=== PATIENT | female | born 1950 | race Caucasian/White ===

== ENCOUNTER 2016-05-19 23:33 | Observation (INO) | payer MEDICARE, OTHER ==
[~2016-05-19] VITALS: Ht 149.9 cm; Wt 48.2 kg
[2016-05-19 23:15] VITALS: BP 164/71; PULSE 81; RESP 30; O2SAT 96
[2016-05-19 23:35] VITALS: BP 112/68; PULSE 81; RESP 24; O2SAT 94
[2016-05-19] MEDS ORDERED: Ondansetron 2 mg/mL 2 mL Inj IVPUSH PRN (23:50)
[2016-05-19] MEDS ORDERED: Atropine 1 mg/10 mL (Code) Syringe IVPUSH PRN (23:50)
[2016-05-19] MEDS ORDERED: Senna-Docusate 8.6-50 mg Tablet PO PRN (23:50)
[2016-05-19] MEDS ORDERED: Alum-Mag Hydrox-Simeth 30 mL Suspension PO PRN (23:50)
[2016-05-19] MEDS ORDERED: Polyethylene Glycol (PEG) 17 Gm Powder PO PRN (23:50)
[2016-05-19] MEDS ORDERED: Heparin 25K Unit/500mL 0.45 NS 25,000 UNIT in IV Premix 1 EACH IV SCH (23:55)
[2016-05-19] MEDS ORDERED: Heparin 5,000 Unit/mL Inj IVPUSH PRN (23:55)
[2016-05-20] VITALS (8 sets, daily range): BP systolic 107–130; BP diastolic 62–73; PULSE 71–90; RESP 18–20; O2SAT 90–96
--- NOTE | 2016-05-20 00:11 | PCM.HPMED ---
Subjective Date of Service May 19, 2016 Primary Provider: Admitting Physician: Knedra Wilhelm DO Primary Care Physician: Devonte Vance MD Attending Physician: Kendra Wilhelm DO Admit Status: Direct Admit Chief Complaint: Chest pain History of Present Illness: Patient is a 65 year old female with a history of anxiety and hypertension. She presented to [facility] as a direct admit. She reports that she initially went to [place] ED around 1400 on 05/19/16. She began having chest pain around 0830 but thought it was related to her anxiety. The pain was substernal and occurred at rest. She was watching the news and eating breakfast when it began and it felt like a panic attack so she took some Xanax. When this did not work she became more concerned. The pain was radiating into her left shoulder, neck and jaw. She was feeling short of breath. She realized she had never had pain this severe before and decided to seek medical treatment. Upon arrival patient still reporting 10/10 chest pain with shortness of breath. Patient reports a history of stress testing. It was done in 2013 as a nuclear stress test. She reports that she was told it was normal. Vitals in the ED showed heart rate 76, respiratory rate 16, blood pressure 156/ 81, and O2 saturation of 98% on room air. Labs were unremarkable. ED note indicates EKG shows Q waves in V1-V3 but no other abnormalities and no acute ischemic changes (this EKG could not be located for review at the time of this H &P). Patient given nitro SL x2, morphine and aspirin with no resolution of chest pain. Cardiology consultation was requested and patient was deemed appropriate for transfer to [facility]. Review of Systems: A comprehensive review of systems was conducted with the patient and found to be negative except as above in the history of present illness. Allergies Coded Allergies: No Known Allergies (Unverified , 05/19/16) Home Medications Patient reports that she takes a low dose antihypertensive and Xanax as needed for her anxiety. She cannot tell me any more about her medications at this time. PMH Anxiety with panic attacks Hypertension No WV, PE/DVT, DM2, stroke history Surgical History None reported Family History Sister had an WV and needed CABG at age 65 Social History Hx Alcohol Use: No Hx Substance Use: No Hx Tobacco Use: Yes Smoking Status: Current Every Day Smoker (almost 1 PPD for many years) Exam Vital Signs Vital Sign - Last Date Time Temp Pulse Resp B/P Pulse Ox O2 Delivery O2 Flow Rate FiO2 05/19/16 23:35 37.5 81 24 112/68 94 Nasal Cannula 6.00 Exam Alert and oriented x3, uncomfortable appearing patient in mild distress Head atraumatic, normocephalic PERRLA, EOMI, sclera anicteric Mucus membranes dry, no oral thrush observed No cervical lymphadenopathy, neck supple, nontender No JVD noted Cardiac tones regular rate and rhythm with no murmur appreciated Lungs clear to auscultation bilaterally with adequate respiratory effort No abdominal tenderness, non-distended, normoactive bowel tones, soft Grace absent Radial pulses normal and equivalent bilaterally, dorsalis pedis pulses normal and equivalent bilaterally No cyanosis, clubbing or edema No ulcerations/open wounds Cranial nerves appear to be fully intact, normal speech, patient can move upper and lower limbs grossly Lab and Diagnostics Labs WBC 11.3 Hgb 14.7 Hct 43.4 Plt 307 Troponin-I negative x 3 D-dimer 0.28 (ref range 0.27-0.52) Sodium 144 Potassium 4.2 Chloride 107 CO2 28 BUN 10 Cr 0.7 Glucose 101 X-Rays, CTs and MRIs CXR report from [place]: Impression: Negative chest. Radiology interpretation 12-lead ECG 05/19/16 11:18PM at [facility] Rate 86 QTc 448 Normal sinus rhythm; no apparent acute ischemic changes; no comparison available Assessment & Plan Patient is a 65 year old female with a history of anxiety and hypertension. She presented to [facility] as a direct admit for more thorough cardiac chest pain work -up. She had gone to [place] around 1400 on 05/19/16 with a five hour history of radiating substernal chest pain and shortness of breath. 1. Unstable angina, acute, present on admission. - Suspicious for cardiac etiology due to risk factors of smoking and hypertension with positive family history. Negative D-dimer at [place] makes PE less likely. Negative chest x-ray makes pulmonary source less likely. - Consider chest CT for evaluation of aorta. - Nitro SL available PRN. - Morphine IV push available PRN chest pain. - Nitropaste available. - Aspirin given at [place] and continued. - Heparin drip started at [place] and continued here. - Echocardiogram ordered for tomorrow AM. - Exercise stress test ordered with Lexiscan back-up. If chest pain not relieved may have to consider other options. - NPO in the event of a need for cardiac catheterization. - Supplemental O2 available as needed. - EKG available PRN chest pain. - Cardiology consultation has been requested and we appreciate their expertise. - Trending troponin. - Lipid panel and Hgb A1c ordered and pending. - CK-MB panel ordered and pending. - If chest pain is not relieved will plan to begin nitro drip and move patient to the 2nd floor. Cardiology will be urgently called in that instance. 2. Hypertension, chronic, presume stable. - As we are uncertain of home regimen will not initiate any medications. - Continue to monitor closely. 3. Anxiety, chronic, presume stable. - Ativan available IV push PRN. 4. Tobacco use, chronic, ongoing. - Patient will need counseling and education about cessation of smoking. - Briefly discussed with patient the necessity of quitting. - Recommend follow up with PCP for any assistance. 5. Medication reconciliation: - Patient currently in too much pain to relay medication list. - Please verify in AM with pharmacy or patient. - Antiemetic available PRN. - Bowel regimen available PRN. - Tylenol available PRN mild pain, fever. - Antacid available PRN. Patient admitted under inpatient status with expected length of stay greater than 2 midnights for severity of present symptoms, complexities of treatment plan and risk for adverse events. PCP Devonte Vance MD VTE Prophylaxis: Sub-Q Heparin (Unfractionated) (cardiac protocol) Resuscitation Status: CPR: Attempt Resuscitation Attending Statement The patient was seen and examined together with house staff on 05/20/2016 and I agree with the history, exam and plan as outlined in the note above. copies to: Devonte Vance MD, Jennifer E DO May 20, 2016 00:01 Kendra Wilhelm DO May 20, 2016 03:41
[2016-05-20] MEDS: 0.9% Sodium Chloride 1,000 ML IV SCH ×2 (00:24→12:16)
[2016-05-20] MEDS: Sodium Chloride LOK Flush 10 mL Syringe IVFLUSH SCH ×4 (00:30→21:55)
[2016-05-20 01:04] LABS: Creatine Kinase 54 U/L (21-215); Magnesium 1.9 mg/dL (1.6-2.6)
[2016-05-20] MEDS: Nitroglycerin 2% 1 Gm Ointment TOPICAL SCH ×4 (02:58→21:45)
[2016-05-20] MEDS ORDERED: ALPR1TAB7 PO (03:19)
[2016-05-20] MEDS ORDERED: ATEN50TA PO (03:19)
[2016-05-20] MEDS ORDERED: oxybutynin SL/PO (03:19)
[2016-05-20] MEDS ORDERED: TRIA0.2525 PO (03:19)
[2016-05-20] MEDS ORDERED: PROZ20 PO (03:19)
[2016-05-20 05:37] LABS: BASOPHILS % (AUTO) 0.2 % (0-3); EOSINOPHILS % (AUTO) 0 % (0-5); MONOCYTES % (AUTO) 9.6 % (4-12); Mean Corpuscular Hemoglobin 31.4 pg (27.0-35.0); Mean Corpuscular Volume 94.9 fL (81-100); NEUTROPHILS % (AUTO) 79.5 % (40-74); Platelet Count 254 bil/L (150-400)
[2016-05-20 06:31] LABS: Creatine Kinase 62 U/L (21-215)
--- NOTE | 2016-05-20 06:44 | NUR ---
Admit Note/Chest Pain Pt arrived to floor a little after 2300, admitted to room 3020, report from transport staff. Vitals stable, SBP 160s, pt placed on 6L NC to maintain sats in mid 90s and for comfort d/t chest pain. Pt c/o 10/10 chest pain, stat ECG ordered, MD informed, nitro given x1 w/ no relief. MD reviewed ECG, ordered PRN morphine. Total of 3mg of morphine given, pt stated pain reduced to 5/10 and fell asleep before additional morphine given. ordered stat CT angio of chest, this nurse took pt down to CT, pt tolerated this and was able to do admission questions once back in room w/out further c/o chest pain. Pt reminded w/ each interaction to inform nursing if any chest pain were to return so that interventions can be done. Pt voiced understanding and has had no further complaints up to this point. Prelim CT report read to MD, found in chart. Heparin drip running per protocol. Tele SR 70s. Med rec complete. Continuing to monitor.
[2016-05-20] MEDS ORDERED: Influenza (Adult) Vaccine 0.5 mL Syringe IM ONE ×2 (08:30→15:43)
--- NOTE | 2016-05-20 09:11 | DRSVH ---
PROCEDURE: CT ANGIOGRAPHY OF THE CHEST WITH CONTRAST ([id number]) INDICATIONS: 65 year-old woman with chest pain. TECHNIQUE: After the administration of intravenous contrast, 3 mm thick sections acquired from the lung apices t o the posterior lung bases. 3-dimensional maximum intensity projection (MIP) oblique sagittal reform ats were then acquired parallel to the aortic arch, and/or 3-dimensional volume rendering reformats. For radiation dose reduction, the following was used: automated exposure control. COMPARISON: None. FINDINGS: Image quality: Excellent. Aorta: Aorta and great vessels are patent. No aneurysm or dissection. There is mild atherosclerosis in the aortic arch. Approximate 60% stenosis is noted in the left proximal subclavian artery. Mediastinum: No hematomas. Heart size is normal. No pericardial effusion. No mediastinal adenopat hy by size criteria. Mildly enlarged right hilar lymph node measures 1.2 cm. Central pulmonary arter ies are normal in size and enhancement without evidence for pulmonary emboli. Esophagus is normal in caliber. No hiatal hernia. Lungs and pleura: Moderate emphysema. Bibasilar infiltrates and consolidations. There is diffuse int erstitial prominence. No pleural effusions or pneumothorax. Central and peripheral airways are paten t and normal in caliber. Bones and chest wall: No axillary adenopathy by size criteria. Thyroid gland demonstrates heterogen eous enhancement. No suspicious bony lesions. No vertebral body compression fractures. Bilateral b reast prostheses noted. Abdomen: Visualized upper abdominal solid organs and bowel loops appear normal. IMPRESSION: 1. No thoracic aortic aneurysm or dissection. 2. 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 3. Moderate emphysema. 4. Bibasilar infiltrates and consolidations suspicious for pneumonia. 5. Borderline enlarged right hilar lymph node, nonspecific. 6. Heterogeneous enhancement of thyroid gland. Please correlate with thyroid function tests. No significant discrepancy with the police shift commander radiology preliminary report. Please note several inc idental findings not mentioned in the preliminary report. Dictated by: Yaz Orellana M.D. on 05/20/2016 at 9:00 Approved by: Yaz Orellana M.D. on 05/20/2016 at 9:09
--- NOTE | 2016-05-20 13:28 | PCM.PNMED ---
Subjective Date of Service May 20, 2016 Subjective Patient is a 65yof with MHx significant for HTN, tobacco smoke, and anxiety presented with substernal chest pain, unrelieved by nitro, admitted for ACS r/ o. Substernal chest pain dramatically decreased since yesterday. She denies any current palpitation, cp, sob, or numbness of Left hand/jaw. No nausea/vomiting. Patient admits to dyspepsia in the past. Took Omeprazole for many years, self stop last year without reasons. She endorses smoking for over 25yrs. Exam Vital Signs Vital Sign - Last Date Time Temp Pulse Resp B/P Pulse Ox O2 Delivery O2 Flow Rate FiO2 05/20/16 05:18 36.9 74 18 107/62 92 Nasal Cannula 6.00 Exam Gen: Lying comfortably flat, older than stated age HEENT: PERRLA, Anicteric sclerae, moist conjunctivae, and no lid lag. Neck: supple, no JVD Cardio: Regular rate and rhythm with no murmurs, rubs, or gallops appreciated Pulm: b/l air sound, no crackles, b/l wheezes, no rhonchi. Normal respiratory effort with no use of accessory muscles. Abd: positive bowel tone. Soft, nontender, nondistended. Extremities: No clubbing, cyanosis, edema, or lymphadenopathy appreciated. Skin: Normal temperature, turgor, and texture; no rash, ulcers, or subcutaneous nodules appreciated. Neuro: Cranial nerves grossly intact. moving equally on all four extremities. Psyc: Normal mood and affect. AoX3 IVs and Medications Medications Reviewed: Medications were reviewed in detail Lab and Diagnostics Result Diagram: 05/20/16 0505 05/20/16 0505 X-Rays, CTs and MRIs CXR report from [place]: Impression: Negative chest. Radiology interpretation 12-lead ECG 05/19/16 11:18PM at [facility] Rate 86 QTc 448 Normal sinus rhythm; no apparent acute ischemic changes; no comparison available Assessment & Plan Patient is a 65 year old female with a history of anxiety and hypertension. She presented to [facility] as a direct admit for more thorough cardiac chest pain work -up. She had gone to [place] around 1400 on 05/19/16 with a five hour history of radiating substernal chest pain and shortness of breath. Unstable angina, acute, present on admission. - Suspicious for cardiac etiology due to risk factors of smoking and hypertension with positive family history. Negative D-dimer at [place] makes PE less likely. Negative chest x-ray makes pulmonary source less likely. - EKG, lipid panel, CK-MB unremarkable. Troponin negative, CT-chest without dissection, pending A1c - Cont aspirin, added atorvastatin, PRN Nitro/nitropaste, morphine, O2 - Echocardiogram to eval structural causes, Exercise stress test ordered with Lexiscan back-up. If chest pain not relieved may have to consider other options. - NPO in the event of a need for cardiac catheterization. - Cardiology consultation has been requested and we appreciate their expertise. Hypertension, chronic, presume stable. - As we are uncertain of home regimen will not initiate any medications. - Continue to monitor closely. Anxiety, chronic, presume stable. - Ativan available IV push PRN. Dispepsia, present on admission, ongoing - Had long hx of acid reflux, on omeprazole for years. - Trial Protonix 20mg BID Tobacco use, chronic, ongoing. - Patient will need counseling and education about cessation of smoking. - Briefly discussed with patient the necessity of quitting. - Recommend follow up with PCP for any assistance. Medication reconciliation: - Patient currently in too much pain to relay medication list. - Please verify in AM with pharmacy or patient. - Antiemetic available PRN. - Bowel regimen available PRN. - Tylenol available PRN mild pain, fever. - Antacid available PRN. Patient admitted under inpatient status with expected length of stay greater than 2 midnights for severity of present symptoms, complexities of treatment plan and risk for adverse events. PCP Devonte Vance MD VTE Prophylaxis: Sub-Q Heparin (Unfractionated) (cardiac protocol) Resuscitation Status: CPR: Attempt Resuscitation Time spent 20 minutes Attending Statement I have seen and evaluated patient at bedside in addition to directly supervised care provided by resident physician. I agree with above documentation. Kwame Serna DO May 20, 2016 08:12 Ernesto Neal DO May 21, 2016 08:14
--- NOTE | 2016-05-20 14:19 | NUR ---
Social Work Attempted Initial Assessment: SW attempted to meet with patient at bedside to discuss discharge plan. Patient off unit at this time and not available at bedside. Patient is a 65 year old female admitted on 05/19/16 for chest pain. Patient payer as Medicare and [facility]. Patient PCP as MD Vance. Emergency contact listed as significant other Leopoldo, . SW to follow upon patient's return to unit to verify information. SW to follow. PLAN: Initial Assessment pending completion. SW to follow. Chelsea Toro
--- NOTE | 2016-05-20 15:10 | DRSVH ---
[facility] [address] [place] [address] Echocardiogram Report Name: JERRI ELDER LStudy Date : 05/20/2016 Height: 59 in Hospital Exam Location: [facility] Weight: 106 lb Gender: Female BSA: 1.4 m2 : 1950 Age: 65 yrs BP: 107/62 mm Hg Reason For Study: Chest pain History: smoker Ordering Physician: HOSPITALIST [facility] Performed By: Tara Davis Referring Physician: Chelsea Vance Interpretation Summary 1. Small left ventricular cavity size with normal wall thickness and normal systolic function with an estimated EF of 60-65% 2. Normal right ventricular size and systolic function. 3. No evidence for significant valvular pathology There is no old study for comparison Procedure: A two-dimensional transthoracic echocardiogram with color flow and Doppler was performed. The study quality was technically adequate. There is no prior echocardiogram noted for this patient. The patient was in normal sinus rhythm during the exam. Left Ventricle: The left ventricular cavity is small. There is normal left ventricular wall thickness. Mildly elevated outflow tract velocities. The ejection fraction is estimated to be 60-65%. No obvious wall motion abnormalities. Assessment of diastolic parameters suggests a pseudonormalization pattern, consistent with elevated filling pressures. Right Ventricle: The right ventricle is normal in size and function. Atria: The left atrium is mildly dilated. Chiari network (normal variant) is noted. Right atrial size is normal. The interatrial septum is intact with no evidence for an atrial septal defect. There is no Doppler evidence for an interatrial shunt. Mitral Valve: There is mild mitral annular calcification. There is trace mitral regurgitation. Aortic Valve: The aortic valve is trileaflet. The aortic valve opens well. There is discrete nodular thickening of the non- coronary cusp. There is mild aortic regurgitation. Tricuspid Valve: The tricuspid valve is not well visualized, but is grossly normal. There is trace tricuspid regurgitation. The right ventricular systolic pressure is estimated at 26 mmHg assuming a right atrial pressure of 8 mm Hg. Pulmonic Valve: The pulmonic valve is not well seen, but is grossly normal. There is a trace or physiologic amount of pulmonic regurgitation. Great Vessels: The aortic root is normal size. The ascending aorta is normal in size. The aortic arch is normal in size. There is mild luminal irregularity and echogenicity in the abdominal aorta, suggestive of aortic atherosclerotic disease. The IVC is of normal diameter and collapses less than 50% with a sniff. This suggests a right atrial pressure of 8 mm Hg. Pericardium/ Pleura There is no pericardial effusion. There is no pleural effusion. MMode/2D Measurements & Calculations LVIDd: 3.6 cm RA long axis LVOT diam: 1.9 cm LVIDs: 2.3 cm LA A2 area: 17.3 cm AoV Opening FS: 35.3 % LA A4 area: 18.2 cm RA area EPSS: 0.10 cm LA length (vol) Ao root diam IVSd: 0.98 cm : 12.3 cm LVPWd: 0.76 cm LA vol: 53.5 ml RA vol Aortic Jxn: 2.6 cm LA vol index : 31.4 ml asc Aorta Diam RA : 22.3 mm2 Ao Arch Diam (Prox IVC diam: 1.7 cm Trans): 2.7 cm LV bunch. diameter/BSA LV sys. diameter/BSA RVD1 (basal) (cm/m^2): 2.6 (cm/m^2): 1.7 Doppler Measurements & Calculations Ao V2 max MV E max frantz MV E/A: 0.91 TR max frantz : 139.8 cm/sec : 79.0 cm/sec Med Peak E' Frantz : 213.0 cm/sec Ao max PG MV A max frantz TR max PG : 7.8 mmHg : 86.4 cm/sec E/E' med: 10.8 : 18.1 mmHg Ao mean PG MV P1/2t: 58.6 msec Pulm A Revs Dur PA V2 max : 69.8 cm/sec LVOT Max Frantz MV A dur: 0.12 sec PA mean PG : 129.8 cm/sec PA Accel Time PAVAN(I,D): 2.4 cm : 0.08 sec sev ratio MV dec time MV P1/2t max frantz Ao V2 mean LV V1 max PG : 0.20 sec : 94.0 cm/sec MVA(P1/2t): 3.8 cm2 Ao V2 VTI: 27.6 cm LV V1 VTI PAVAN(V,D): 2.5 cm2 : 24.3 cm PA V2 mean PAVAN indexed to BSA Pulm A Revs Dur - MV : 55.6 cm/sec (cm^2/m^2): 1.7 A Dur: -0.02 msec Reading Physician:03:09 PM
[2016-05-20] MEDS: Pantoprazole 20 mg ER24 Tablet PO SCH ×2 (15:49→21:45)
--- NOTE | 2016-05-20 16:48 | NUR ---
Case Management: JIM explained to patient and family at 1620, all questions answered. Signed original in chart, copy given to patient. Ronit Bee RN
--- NOTE | 2016-05-20 21:41 | CONS ---
[address] [address] CONSULTATION REPORT PATIENT: JERRI ELDER : 1950 MR#: [id number] ADMIT: 05/19/2016 JOB ID: [id number] DATE OF SERVICE: 05/20/2016 CHIEF COMPLAINT: I was asked by the Medicine Team to consult on this patient given chest pain. HISTORY OF PRESENT ILLNESS: The patient is a 65-year-old woman with past medical history significant for hypertension. She also has a history of GERD, and about a month or so ago, stopped taking her pills for that. She said that yesterday upon getting up from bed and sitting on the side of the bed without doing any activity she developed discomfort that started in her shoulders and went to her chest. She described it as an ache. It was not associated with diaphoresis, shortness of breath, nausea, vomiting. Did not worsen with deep inspiration. She came to the ER. Had no acute EKG changes. Is now ruled out by serial cardiac markers. She says she still has a little bit of dull discomfort but it has lessened. She denies worsening of the discomfort with exertion. She denies any shortness of breath. PAST MEDICAL HISTORY/PROBLEM LIST: 1. Hypertension. 2. History of anxiety and panic attacks. MEDICATIONS: At home, include atenolol for blood pressure, as well as Prozac. Again she was on a medication for GERD in the past. Other problems include GERD. ALLERGIES: No known drug allergies. SOCIAL HISTORY: She is a smoker. Denies significant alcohol use. FAMILY HISTORY: Positive for sister who had a heart attack around her age REVIEW OF SYSTEMS: Overall health: No fevers, night sweats or weight loss. GI: She has history of GERD : No dysuria, hematuria. Pulmonary: No history of lung disease. No shortness of breath. Cardiac: As per HPI but denies orthopnea, PND, lower extremity edema, palpitations, presyncope, syncope. Heme: No easy bruising or bleeding. Derm: No rashes, skin breakdown. Endocrine: No heat or cold intolerance. No history of diabetes mellitus. Musculoskeletal: No joint pain, no swelling. ENT: No sore throat, difficulty swallowing. Ophtho: No vision changes. Psych: No acute issues. neuro: no chronic headaches. All other review of systems on 12-point review of systems are negative. PHYSICAL EXAMINATION: VITAL SIGNS: Blood pressure is 118/73. She is afebrile. Sats are 96% on 4 L. General: In no acute distress. Speaking in full sentences without apparent shortness of breath. Head and neck exam: Normocephalic, atraumatic. Neck: No obvious JV distention. Heart exam: Regular rate and rhythm. I do not appreciate obvious murmurs, gallops rubs appreciated. Lungs clear to auscultation. Back: No CVA tenderness to palpation. Abdomen soft, nondistended, nontender. Extremities are warm. No appreciable edema, 2+ DP pulses appreciated. Skin without breakdown appreciated. Neuro: Alert, oriented x3. Gait is not tested. Psych: Appropriate mood and affect. HEENT: Mucous membranes moist. No erythema of the oropharynx. Ophtho: Vision is grossly normal. LABORATORY AND DIAGNOSTIC STUDIES: EKG shows sinus rhythm. LABORATORIES: Show a white count 10.6, H and H 12.9 and 30, platelets 254,000. Chemistry shows sodium 137, potassium 4.3, chloride and bicarb 101 and 28, respectively. BUN and creatinine 11 and 0.61. Troponins negative. TSH normal. IMAGING: Shows a CT angiogram which shows approximately 60% stenosis in the left subclavian artery, moderate emphysema, bibasilar findings suspicious for pneumonia, borderline enlarged right hilar lymph node, nonspecific heterogeneous enhancement of thyroid gland. Echocardiogram shows normal LV systolic function. No significant valvular pathology. The patient has also had a stress test which she tells me was a Lexiscan stress test. I do not have the results of that as yet. IMPRESSION: The patient has risk factors for coronary disease. She had chest pain with some typical and atypical features. She has fortunately ruled out by serial cardiac markers. Has no evidence for any acute EKG changes. Echo shows normal LV systolic function. PLAN: We will await the results of the stress test and decide if she needs any further assessment on my part. She is encouraged to quit tobacco. Please note that 55 minutes of time was spent speaking with the patient, reviewing her records, and discussing further ramifications of her current admission and potential diagnoses. VIVIANE
[2016-05-21 00:53] VITALS: BP 112/62; PULSE 86; RESP 18; O2SAT 91
[2016-05-21] MEDS: Nitroglycerin 2% 1 Gm Ointment TOPICAL SCH ×2 (03:43→08:30)
[2016-05-21] MEDS: 0.9% Sodium Chloride 1,000 ML IV SCH ×2 (03:43→13:16)
[2016-05-21 04:46] VITALS: BP 122/65; PULSE 87; RESP 18; O2SAT 90
--- NOTE | 2016-05-21 04:50 | NUR ---
sleep/tele Requesting home sleeping med of triazolam at HS, but not on formulary per MD, so given 0.5 mg, which patient states was effective and has slept much of the night. Denies chest pain. Nitro paste on per orders. Has been NPO since midnight, in case of possible procedure today. Tele has been sinus rhythm. Addendum: 05/21/16 at 0456 by ARLYN NASH RN Sats Sats have been in the mid-'s on 3-4 liters nasal cannula. MD aware of this.
[2016-05-21 07:22] LABS: Mean Corpuscular Hemoglobin 31.2 pg (27.0-35.0); Mean Corpuscular Volume 95.5 fL (81-100)
--- NOTE | 2016-05-21 07:50 | NUR ---
Off floor Patient off floor at 0735 to CVL for resting stress test. Contrast given by IV per tech. Patient drinking water with light snack. VSS, rates CP at 1/10. Nitro paste removed, AM meds held until after procedure. Chart with patient, bus monitor aware.
[2016-05-21] MEDS: Sodium Chloride LOK Flush 10 mL Syringe IVFLUSH SCH (08:58)
[2016-05-21] MEDS: Pantoprazole 20 mg ER24 Tablet PO SCH (08:59)
[2016-05-21 09:06] VITALS: BP 163/81; PULSE 80; RESP 19; O2SAT 91
[2016-05-21] MEDS ORDERED: NITR0.4T SL (10:58)
[2016-05-21] MEDS ORDERED: LIP40 PO (11:02)
--- NOTE | 2016-05-21 11:38 | NUR ---
Social Work-initial assessment/discharge: Data:See initial assessment. P tis a 65 y/o female who was admitted on 05/19/16 for chest pain per H&P. Pt's insurance is [employer] and PCP is Devonte Mcleod MD. EMR Reviewed. Pt's readmission score is 3-high risk. SW met with pt at bedside, SW role explained. Pt is alert and oriented x3. Pt resides at home with her friend where she remains independent with ADLs. Pt drives and does not use any DME. Pt has no HH or SNF history. pt has no [facility] care or [facility] benefits. SW discussed DPOA/ advanced directive, pt has not completed this and is not interested in any information. Per RN notes, pt has been up independent in her room. Pt anticipated to discharge today. No discharge needs identified. Pt's family to provide transport home. SW provided phone number and plan on white board in room. All updated and agreeable. Assessment:pt who is independent at baseline. Plan:Pt to discharge home today via POV. No discharge needs identified. All updated and agreeable. RHIANNON Reeder Addendum: 05/21/16 at 1143 by MAI MCLEOD Amended: Links added.
--- NOTE | 2016-05-21 12:18 | DRSVH ---
PROCEDURE: 2 DAY STRESS TEST Rest and pharmacological stress myocardial perfusion SPECT with gated imaging and ejection fraction RADIOPHARMACEUTICAL: 21.6 mCi Tc-99m tetrafosmin IV at rest and 20.0 mCi Tc-99m tetrafosmin IV at pea k effect of pharmacological stress. [id number] was performed. INDICATIONS: CHEST PAIN TECHNIQUE: Radiopharmaceutical was injected at peak stress test, and also at rest. SPECT images wer e obtained. SPECT myocardial perfusion images were displayed in short axis, horizontal long axis, an d vertical long axis views. Gated images were reviewed using [employer] software. COMPARISON: None. CARDIAC STRESS: A pharmacologic stress test was performed under the supervision of an attending staff, using an infus ion of Regadenoson. Hemodynamic data: There is normal blood pressure and heart rate response to pharmacologic stress. Symptoms: The patient denied anginal chest pain. Aminophylline: 100 mg IV EKG: No diagnostic changes of ischemia; no ectopy. FINDINGS: Raw data: There is good myocardial uptake of radiotracer. No significant motion artifacts. Left ventricle function: Gated images demonstrate normal left ventricular wall thickening. No segme ntal wall motion abnormalities. Left ventricle resting end diastolic volume is 34 mL. Left ventricl e stress ejection fraction is greater than 70%; normal range is above 45%. Myocardial perfusion: There is a small perfusion defect noted in the mid anterior wall but resolves with prone imaging. The resting images were normal as well. IMPRESSION: This is most likely a normal myocardial perfusion study. The mid anterior defect most l ikely reflects breast attenuation artifact since it resolves with prone imaging. The LVEF is hyperdy namic with normal LV wall motion. Pharmacological stress EKG is non-diagnostic. Overall, patient h as a low risk for significant obstructive CAD. Dictated by: Percy Bower Jr., M.D. on 05/21/2016 at 12:12 Approved by: Percy Bower Jr., M.D. on 05/21/2016 at 12:16
--- NOTE | 2016-05-21 13:27 | PCM.DIMED ---
Kwame Serna DO 05/21/16 1107: Discharge Instructions Date of Service May 21, 2016 Dates of Hospitalization May 19, 2016 at 23:33 Discharge Diagnosis Discharge Diagnosis Unstable angina, acute, present on admission. Hypertension, chronic, presume stable. Anxiety, chronic, presume stable. Dyspepsia, present on admission, ongoing Test Results PROCEDURE: 2 DAY STRESS TEST IMPRESSION: This is most likely a normal myocardial perfusion study. The mid anterior defect most likely reflects breast attenuation artifact since it resolves with prone imaging. The LVEF is hyperdynamic with normal LV wall motion. Pharmacological stress EKG is non-diagnostic. Overall, patient has a low risk for significant obstructive CAD. Dictated by: Percy Bower Jr., M.D. on 05/21/2016 at 12:12 Echocardiogram Report Interpretation Summary 1. Small left ventricular cavity size with normal wall thickness and normal systolic function with an estimated EF of 60-65% 2. Normal right ventricular size and systolic function. 3. No evidence for significant valvular pathology There is no old study for comparison Lipid panel Item Value Date Time Triglycerides Level 56 mg/dL 05/20/16 0505 Cholesterol Level 139 mg/dL 05/20/16 0505 LDL Cholesterol, Calculated 71.800 mg/dL 05/20/16 0505 VLDL Cholesterol 11.200 mg/dL 05/20/16 0505 HDL Cholesterol 56 mg/dL 05/20/16 0505 Cholesterol/HDL Ratio 2.48 05/20/16 0505 Diet Heart Healthy Activity No restrictions Call your provider Chest pain, Weakness (unilateral) Patient Instructions Unstable angina, acute, present on admission. --You do not have a heart attack based on our testings. --You are at high risk for a heart attack however. --The 10yrs risk for heart attack or stroke is 13.1% --For this, please take these medication below Baby Aspirin (81mg) daily Atorvastatin 40mg daily Continue taking atenolol Suggest that you take an FELICIA inhibitor as well. Please discuss this with your primary care provider See your primary care provider within 1wk. While you were here, we notice that you have a much lower Oxygen level than expected. I suspect this may be COPD given your smoking history. Please see your primary care provider about a LUNG FUNCTION TEST Follow-up Provider: Devonte Vance MD Follow-up with PCP in: 1 week Ernesto Neal DO 05/21/16 1445: Discharge Instructions Attending's Statement Read and agree. Kwame Serna DO May 21, 2016 11:07 Ernesto Neal DO May 21, 2016 14:45
--- NOTE | 2016-05-21 14:04 | NUR ---
DISCHARGE Patient discharged home at 1400, ambulated off floor accompanied by RN and sister. Vitals stable, denies pain and chest pain, and in no apparent distress. IV discontinued intact, all belongings returned. All instructions for diet, activity, medications, new prescriptions and follow-up reviewed with patient who reports understanding.
--- NOTE | 2016-05-21 16:03 | PCM.DC.MED ---
Discharge Summary Date of Service May 21, 2016 Dates of Hospitalization Date of Hospital Admission May 19, 2016 at 23:33 Date of Discharge: May 21, 2016 Providers: Admitting Physician: Kendra Wilhelm DO Primary Care Physician: Devonte Vance MD Attending Physician: Kendra Wilhelm DO Diagnosis at Time of Discharge Diagnosis at Time of Discharge Unstable angina, acute, present on admission. Hypertension, chronic, presume stable. Anxiety, chronic, presume stable. Dyspepsia, present on admission, ongoing Tobacco use disorder, present on admission, ongoing Procedures XRay, CTs & MRIs CXR report from [facility]: Impression: Negative chest. Radiology interpretation PROCEDURE: CT ANGIOGRAPHY OF THE CHEST WITH CONTRAST INDICATIONS: 65 year-old woman with chest pain. IMPRESSION: 1. No thoracic aortic aneurysm or dissection. 2. 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 3. Moderate emphysema. 4. Bibasilar infiltrates and consolidations suspicious for pneumonia. 5. Borderline enlarged right hilar lymph node, nonspecific. 6. Heterogeneous enhancement of thyroid gland. Please correlate with thyroid function tests. No significant discrepancy with the night time babysitter radiology preliminary report. Please note several incidental findings not mentioned in the preliminary report. Dictated by: Yaz Orellana M.D. on 05/20/2016 at 9:00 PROCEDURE: 2 DAY STRESS TEST Rest and pharmacological stress myocardial perfusion SPECT with gated imaging and ejection fraction RADIOPHARMACEUTICAL: 21.6 mCi Tc-99m tetrafosmin IV at rest and 20.0 mCi Tc-99m tetrafosmin IV at peak effect of pharmacological stress. [id number] was performed. INDICATIONS: CHEST PAIN TECHNIQUE: Radiopharmaceutical was injected at peak stress test, and also at rest. SPECT images were obtained. SPECT myocardial perfusion images were displayed in short axis, horizontal long axis, and vertical long axis views. Gated images were reviewed using [employer] software. COMPARISON: None. CARDIAC STRESS: A pharmacologic stress test was performed under the supervision of an attending staff, using an infusion of Regadenoson. Hemodynamic data: There is normal blood pressure and heart rate response to pharmacologic stress. Symptoms: The patient denied anginal chest pain. Aminophylline: 100 mg IV EKG: No diagnostic changes of ischemia; no ectopy. FINDINGS: Raw data: There is good myocardial uptake of radiotracer. No significant motion artifacts. Left ventricle function: Gated images demonstrate normal left ventricular wall thickening. No segmental wall motion abnormalities. Left ventricle resting end diastolic volume is 34 mL. Left ventricle stress ejection fraction is greater than 70%; normal range is above 45%. Myocardial perfusion: There is a small perfusion defect noted in the mid anterior wall but resolves with prone imaging. The resting images were normal as well. IMPRESSION: This is most likely a normal myocardial perfusion study. The mid anterior defect most likely reflects breast attenuation artifact since it resolves with prone imaging. The LVEF is hyperdynamic with normal LV wall motion. Pharmacological stress EKG is non-diagnostic. Overall, patient has a low risk for significant obstructive CAD. Dictated by: Percy Bower Jr., M.D. on 05/21/2016 at 12:12 ECG 12 Lead 05/19/16 11:18PM at [facility] Rate 86 QTc 448 Normal sinus rhythm; no apparent acute ischemic changes; no comparison available Brief History Patient is a 65 year old female with a history of anxiety and hypertension. She presented to [facility] as a direct admit. She reports that she initially went to [facility] ED around 1400 on 05/19/16. She began having chest pain around 0830 but thought it was related to her anxiety. The pain was substernal and occurred at rest. She was watching the news and eating breakfast when it began and it felt like a panic attack so she took some Xanax. When this did not work she became more concerned. The pain was radiating into her left shoulder, neck and jaw. She was feeling short of breath. She realized she had never had pain this severe before and decided to seek medical treatment. Upon arrival patient still reporting 10/10 chest pain with shortness of breath. Patient reports a history of stress testing. It was done in 2013 as a nuclear stress test. She reports that she was told it was normal. Vitals in the ED showed heart rate 76, respiratory rate 16, blood pressure 156/ 81, and O2 saturation of 98% on room air. Labs were unremarkable. ED note indicates EKG shows Q waves in V1-V3 but no other abnormalities and no acute ischemic changes (this EKG could not be located for review at the time of this H &P). Patient given nitro SL x2, morphine and aspirin with no resolution of chest pain. Cardiology consultation was requested and patient was deemed appropriate for transfer to [facility]. Hospital Course Patient is a 65yof transfer from [facility] with MHx significant for HTN, tobacco smoke, and anxiety presented with substernal chest pain, unrelieved by nitro, admitted for ACS r/o. Labs, echo, and nuclear stress test all unremarkable. Patient likely has uncontrolled GERD. She stopped taking PPI about 1yr ago. Recommend restarting ppi and adding rehan-i. She was discharged with atorvastatin. While inhouse, pulse ox sat low-90's and 89's with exertion. CT-angiogram showed moderate emphysema. Recommend a pulmonary function test out patient. Unstable angina, acute, present on admission. - Suspicious for cardiac etiology due to risk factors of smoking and hypertension with positive family history. Negative D-dimer at [facility] makes PE less likely. Negative chest x-ray makes pulmonary source less likely. - EKG, lipid panel, CK-MB unremarkable. Troponin negative, CT-chest without dissection, Echo and exercise stress test negative. A1c 5.8 - Received aspirin, atorvastatin, PRN Nitro/nitropaste, morphine, O2 - Discharge patient on atorvastatin and nitro sublingual prn. recommended aspirin 81mg daily - Will need a f/u liver function test in 1mo Hypertension, chronic, presume stable. - Looks like she takes atenolol only. hold for stress testing - BP 163/81 prior to discharge - restarted reported home antenolol, recommend adding Rehan-i if she's not already on. Anxiety, chronic, presume stable. - Ativan available IV push PRN. Dispepsia, present on admission, ongoing - Had long hx of acid reflux, on omeprazole for years. - Trial Protonix 20mg BID Tobacco use, chronic, ongoing. - Patient will need counseling and education about cessation of smoking. - Briefly discussed with patient the necessity of quitting. - Evidence of COPD. CT-angio shows emphysema, PFT outpatient - Recommend follow up with PCP for any assistance. Exam Vital Signs (Last) Date Time Temp Pulse Resp B/P Pulse Ox O2 Delivery O2 Flow Rate FiO2 05/21/16 09:06 36.8 80 19 163/81 91 Nasal Cannula 3.00 Test 05/20/16 00:10 05/20/16 05:05 05/20/16 05:12 05/20/16 17:34 Hemoglobin A1c 5.8% (4.8-5.6) Magnesium Level 1.9mg/dL (1.6-2.6) Thyroid Stimulating Hormone (TSH) 1.070uIU/mL (0.450-4.500) Hold Anderson Top Tube Received (Received) Neutrophils (%) (Auto) 79.5% (40-74) Lymphocytes (%) (Auto) 10.6% (14-46) Monocytes (%) (Auto) 9.6% (4-12) Eosinophils (%) (Auto) 0% (0-5) Basophils (%) (Auto) 0.2% (0-3) Total Creatine Kinase 62U/L (21-215) Creatine Kinase MB 2.1ng/mL (0.0-5.3) Creatine Kinase MB % % (0.0-5.0) Troponin T 0.010ug/L (0.0-0.011) Triglycerides Level 56mg/dL (0-149) Cholesterol Level 139mg/dL (100-199) LDL Cholesterol, Calculated 71.800mg/dL (0-99) VLDL Cholesterol 11.200mg/dL HDL Cholesterol 56mg/dL (>39) Cholesterol/HDL Ratio 2.48 (0.0-4.4) Hold Urine Received (Received) Activated Partial Thromboplast Time 103.9sec (22.8-33.0) Test 05/21/16 06:58 05/21/16 11:15 White Blood Count 9.0th/mm3 (3.8-10.1) Red Blood Count 3.53mil/mm3 (3.90-5.20) Mean Corpuscular Volume 95.5fL (81-100) Mean Corpuscular Hemoglobin 31.2pg (27.0-35.0) Mean Corpuscular Hemoglobin Concent 32.6% (32.0-37.0) Red Cell Distribution Width 12.4% (12.3-15.4) Platelet Count 226bil/L (150-400) Sodium Level 139mEq/L (134-144) Potassium Level 4.3mEq/L (3.5-5.2) Chloride Level 107mEq/L (97-108) Carbon Dioxide Level 17mmol/L (18-29) Blood Urea Nitrogen 8mg/dL (8-27) Creatinine 0.48mg/dL (0.57-1.00) Estimat Glomerular Filtration Rate 186mL/min (>59) Glucose Level 78mg/dL (60-99) Calcium Level 8.1mg/dL (8.5-10.1) Procalcitonin 0.24ng/mL (See Comment) Hemoglobin 12.4g/dL (12.0-15.6) Hematocrit 36.7% (35.0-46.0) Discharge Medications Discharge Medications ([oxybutynin]) Unknown Dose SL/PO DAILY (Reported) Atenolol (Atenolol) 50 Mg Tablet 50 MG PO DAILY (Reported) Atorvastatin (Lipitor) 40 Mg Tablet 40 MG PO DAILY Prescribed by: SOL SERNA DO Fluoxetine (Prozac) 20 Mg Capsule 20 MG PO HS (Reported) As needed Alprazolam (Alprazolam) 1 Mg Tablet 1 MG PO TID PRN PRN For Anxiety (Reported) Nitroglycerin SL (Nitrostat) 0.4 Mg Tab.subl 0.4 MG SL Q5MIN PRN PRN For Chest Pain Prescribed by: SOL SERNA DO Triazolam (Triazolam) 0.25 Mg Tablet 0.25 MG PO HS PRN PRN For Sleep (Reported) Followup Plan Discharge Diet: Heart Healthy Discharge Activity: No restrictions Patient Instructions Unstable angina, acute, present on admission. --You do not have a heart attack based on our testings. --You are at high risk for a heart attack however. --The 10yrs risk for heart attack or stroke is 13.1% --For this, please take these medication below Baby Aspirin (81mg) daily Atorvastatin 40mg daily Continue taking atenolol Suggest that you take an REHAN inhibitor as well. Please discuss this with your primary care provider See your primary care provider within 1wk. While you were here, we notice that you have a much lower Oxygen level than expected. I suspect this may be COPD given your smoking history. Please see your primary care provider about a LUNG FUNCTION TEST Follow-up Provider: Devonte Vance MD Follow-up with PCP in: 1 week Sol Serna DO May 21, 2016 16:03
== END 2016-05-21 14:15 | disposition home or self-care (01) ==
LOC: INTOOBSV 23:33 → MPC 23:33
PROVIDERS: ADMIT Internal Medicine; ATTEND Internal Medicine
DX: I20.0 Unstable angina (principal); I10 Essential (primary) hypertension; F41.9 Anxiety disorder, unspecified; R10.13 Epigastric pain; K21.9 Gastro-esophageal reflux disease without esophagitis; R07.9 Chest pain, unspecified; F17.210 Nicotine dependence, cigarettes, uncomplicated; Z23 Encounter for immunization
CPT/HCPCS: 36415; 71275; 78452; 80048; 80061; 82308; 82550; 82553; 83036; 83735; 84443; 84484; 85014; 85018; 85025; 85027; 85730; 90471; 93005; 93017; 96374; 96375; A9502; C8929; G0378; G0379; J0280; J1644; J1650; J2060; J2270; J2405; J2785; J7030; Q2039; Q9967